=== PATIENT | female | born 1980 | race Caucasian/White ===

== ENCOUNTER → 2019-09-01 14:07 | Outpatient (BNVA) | payer BC, SELFPAY | PROVIDERS: Visit Provider Obstetrics & Gynecology | DX: Z30.9 Encounter for contraceptive management, unspecified (principal) | CPT/HCPCS: 81025 ==

== ENCOUNTER → 2023-08-16 13:56 | Outpatient (BNVA) | payer OTHER, SELFPAY | PROVIDERS: Visit Provider Nurse Practitioner | DX: M54.9 Dorsalgia, unspecified (principal) | CPT/HCPCS: 81000 ==

== ENCOUNTER 2023-08-18 11:09 | Outpatient (CLI) | payer OTHER, SELFPAY ==
--- NOTE | 2023-08-18 11:15 | CT_ITS ---
WS: [id number] CT ABDOMEN PELVIS TECHNIQUE: Noncontrast CT of the abdomen and pelvis with coronal and sagittal reformatted images. CLINICAL INFORMATION: LEFT FLANK PAIN COMPARISON: None. DLP: 965.[address] scans at [facility] use at least one of these dose optimization techniques: automated e xposure control; mA and/or kV adjustment per patient size (includes targeted exams where dose is matc hed to clinical indication); or iterative reconstruction. FINDINGS: Lung bases are well aerated. Cholelithiasis. No gallbladder wall thickening or pericholecystic fluid. Normal GE junction. Normal noncontrast liver. Normal noncontrast pancreas. Noncontrast spleen is nor mal. Adrenal glands are normal. No obstructing renal or ureteral calculi. No hydronephrosis in either kidney. Tiny nonobstructing LEFT calyceal tip calculus. IUD in place. Normal appendix in the RIGHT lower quadrant. No evidence of acute appendicitis. Inciden marily tiny fat-containing umbilical hernia. Mild disc bulging L5-S1. IMPRESSION: 1. No obstructing renal or ureteral calculi. No hydronephrosis in either kidney. 2. Tiny nonobstructing LEFT calyceal tip calculus. 3. Prominent gallstones in the gallbladder. This could be further evaluated with ultrasound. No gall bladder wall thickening or pericholecystic fluid. 4. Normal appendix in the RIGHT lower quadrant. No evidence of acute cholecystitis. 5. IUD appears in place. 6. Small LEFT ovarian cyst measuring 1.7 cm.
== END 2023-08-18 11:10 | disposition home or self-care (01) ==
LOC: RAD 11:09
PROVIDERS: Visit Provider Family Medicine
DX: N20.0 Calculus of kidney (principal); K80.20 Calculus of gallbladder without cholecystitis without obstruction; N83.202 Unspecified ovarian cyst, left side; Z97.5 Presence of (intrauterine) contraceptive device
CPT/HCPCS: 74176